=== PATIENT | female | born 1960 | race Caucasian/White ===

== ENCOUNTER 2022-05-25 10:51 | Emergency (ER) | payer BC ==
[~2022-05-25] VITALS: Ht 167.6 cm; Wt 78.9 kg
[2022-05-25 10:57] VITALS: BP_SYST 144
--- NOTE | 2022-05-25 11:01 | NUR ---
Placed in room 2 . Placed on surveillance system monitor, blood pressure machine and pulse oximeter. To gown for exam. Side rails up. Report given to RADHA PURCELL.
[2022-05-25] MEDS ORDERED: DIPHTH,PERTUSS(ACELL),TET VAC 0.5 ML VIAL (Tdap) I.M. ONE (11:15)
--- NOTE | 2022-05-25 13:15 | NUR ---
Patient received and seems adgitated after minor fall. is at bedside and EMT assisting with cleansing patients face and arm to remove blood and clean scraps from the fall. Tdap given. NO other signs of major distress or issues atthis time.
[2022-05-25 14:10] VITALS: BP_SYST 120
--- NOTE | 2022-05-25 14:13 | NUR ---
Patient has been treated, facial lacerations cleansed at this time.
--- NOTE | 2022-05-25 14:14 | NUR ---
Patient given written and verbal discharge instructions and verbalizes understanding. ER MD discussed with patient the results and treatment provided. Patient in stable condition. ID arm band removed. IV catheter removed intact and dressing applied, no active bleeding. NO RX given. Patient educated on pain management and to follow up with PMD. Pain Scale 2/10. Opportunity for questions provided and answered. Medication side effect fact sheet provided.
== END 2022-05-25 14:10 | disposition home or self-care (01) ==
LOC: SED 10:51
DX: S00.81XA Abrasion of other part of head, initial encounter (principal); Z88.1 Allergy status to other antibiotic agents; Z88.2 Allergy status to sulfonamides; Z88.6 Allergy status to analgesic agent; Z79.899 Other long term (current) drug therapy; W01.0XXA Fall on same level from slipping, tripping and stumbling without subsequent striking against object, initial encounter; Y93.89 Activity, other specified; Y92.89 Other specified places as the place of occurrence of the external cause; Y99.8 Other external cause status
CPT/HCPCS: 70450-TC; 70486-TC; 72125-TC; 76376; 90715; 99284